=== PATIENT | female | born 1985 | race American Indian/Alaskan Native ===

== ENCOUNTER 2016-04-08 15:09 | Emergency (ER) | payer SELFPAY ==
[2016-04-08 16:03] VITALS: BP 110/72
== END 2016-04-08 17:10 | disposition left against medical advice (07) ==
LOC: ED 15:09
DX: R10.10 Upper abdominal pain, unspecified (principal); R11.2 Nausea with vomiting, unspecified; R42 Dizziness and giddiness; Z72.0 Tobacco use; Z53.21 Procedure and treatment not carried out due to patient leaving prior to being seen by health care provider

== ENCOUNTER 2016-11-18 13:06 | Emergency (ER) | payer MEDICAID ==
[2016-11-18 14:16] LABS: Basophils % (Auto) 0.5 % (0.0-1.8); Hematocrit 38.5 % (30.3-42.9); Hemoglobin 13.1 gm/dl (10.1-14.3); Mean Corpuscular HGB Conc 34 % (30-34); Mean Corpuscular Hemoglobin 32 pg (28-32); Mean Corpuscular Volume 94 fl (79-97); Platelet Count 257 K/mm3 (140-440); Red Blood Count 4.08 M/mm3 (3.65-5.03); Red Cell Distribution Width 13.7 % (13.2-15.2); White Blood Count 10.3 K/mm3 (4.5-11.0)
[2016-11-18 14:51] LABS: Bilirubin,Urine NEG (Negative); Blood,Urine MOD (Negative); Ketones,Urine 80 mg/dL (Negative); Leukocyte Esterase,Urine TR (Negative); Mucus,Urine 1+ /HPF; Nitrite,Urine NEG (Negative)
[2016-11-18 14:53] LABS: RBC,Urine < 182.0 /HPF (0.0-6.0)
[2016-11-18 14:56] LABS: Alanine Aminotransferase 32 units/L (7-56); Albumin 4.7 g/dL (3.9-5); Albumin/Globulin Ratio 1.5 %; Alkaline Phosphatase 51 units/L (35-129); Anion Gap 21 mmol/L; BUN/Creatinine Ratio 15; Blood Urea Nitrogen 12 mg/dL (7-17); Calcium 9.3 mg/dL (8.4-10.2); Carbon Dioxide 22 mmol/L (22-30); Chloride 97.8 mmol/L (98-107); Glucose 98 mg/dL (65-100); Lipase 23 units/L (13-60); Sodium 138 mmol/L (137-145); Total Protein 7.8 g/dL (6.3-8.2)
[2016-11-18 15:00] LABS: Potassium 2.9 mmol/L (3.6-5.0)
[2016-11-18] MEDS ORDERED: ZOFRAN IV ONE (20:42)
[2016-11-18] MEDS ORDERED: MORPHINE IV ONE (20:42)
[2016-11-18] MEDS ORDERED: MAGNESIUM SULFATE 2GM/50ML 2 GM/50 ML BAG IV ONE (20:48)
[2016-11-18] MEDS ORDERED: KCL 10MEQ/100ML 10 MEQ/100 ML BAG IV ONE (20:48)
--- NOTE | 2016-11-18 20:53 | Emergency Department Report ---
ED General Adult HPI - General Chief complaint: Abdominal Pain Stated complaint: ABDOMINAL PAIN/VOMITING Time Seen by Provider: 11/18/16 20:00 Source: patient Mode of arrival: Ambulatory Limitations: No Limitations - History of Present Illness Initial comments: Patient is a 31-year-old femalein past medical history who presents with abdominal pain has been going on for the last 4 days. Patient states that all pain is generalized she states that the pain is in a 10 it's an 80-type pain that doesn't radiate. She is not complaining of any dysuria but she was seen at [facility] for kidney stone. She states that she came in here today because of her nausea. She is vomited 3 times today and was given promethazine as an outpatient. She states that she Tolerated Due To the Vomiting. Vomiting Is Nonbloody Nonbilious. Patient Denies Any Vaginal Discharge or Vaginal Bleeding. Severity scale (0 -10): 5 - Related Data Previous Rx's Medication Instructions Recorded Last Taken Type Ciprofloxacin HCl [Cipro] 500 mg PO Q12H #10 tab 07/01/14 Unknown Rx Ondansetron [Zofran] 8 mg PO Q8HR PRN #12 tablet 07/01/14 Unknown Rx Ciprofloxacin HCl [Cipro] 500 mg PO BID #14 tablet 07/24/14 Unknown Rx Phenazopyridine [Pyridium] 100 mg PO PC #6 tablet 07/24/14 Unknown Rx Promethazine [Phenergan] 25 mg PO Q6H PRN #10 tablet 07/24/14 Unknown Rx Magnesium Chloride [Slow-Mag] 64 mg PO DAILY #20 tablet.er 11/18/16 Unknown Rx Ondansetron [Zofran TAB] 4 mg PO Q8HR PRN #15 tablet 11/18/16 Unknown Rx Potassium Chloride [Klor-Con 10] 10 meq PO DAILY #20 tablet.er 11/18/16 Unknown Rx Allergies Allergy/AdvReac Type Severity Reaction Status Date / Time No Known Allergies Allergy Verified 11/18/16 13:34 ED Review of Systems ROS: Stated complaint: ABDOMINAL PAIN/VOMITING Other details as noted in HPI Constitutional: denies: chills, fever Eyes: denies: eye pain, eye discharge, vision change ENT: denies: ear pain, throat pain Respiratory: denies: cough, shortness of breath, wheezing Cardiovascular: denies: chest pain, palpitations Endocrine: no symptoms reported Gastrointestinal: abdominal pain, nausea, vomiting. denies: diarrhea Genitourinary: denies: urgency, dysuria, discharge Musculoskeletal: denies: back pain, joint swelling, arthralgia Skin: denies: rash, lesions Neurological: denies: headache, weakness, paresthesias Psychiatric: denies: anxiety, depression Hematological/Lymphatic: denies: easy bleeding, easy bruising ED Past Medical Hx - Past Medical History Previous Medical History?: Yes Hx Kidney Stones: Yes Additional medical history: Renal Cyst - Surgical History Past Surgical History?: No - Social History Smoking Status: Current Some Day Smoker Substance Use Type: None - Medications Home Medications: Home Medications Medication Instructions Recorded Confirmed Last Taken Type Ciprofloxacin HCl [Cipro] 500 mg PO Q12H #10 tab 07/01/14 Unknown Rx Ondansetron [Zofran] 8 mg PO Q8HR PRN #12 tablet 07/01/14 Unknown Rx Ciprofloxacin HCl [Cipro] 500 mg PO BID #14 tablet 07/24/14 Unknown Rx Phenazopyridine [Pyridium] 100 mg PO PC #6 tablet 07/24/14 Unknown Rx Promethazine [Phenergan] 25 mg PO Q6H PRN #10 tablet 07/24/14 Unknown Rx Magnesium Chloride [Slow-Mag] 64 mg PO DAILY #20 tablet.er 11/18/16 Unknown Rx Ondansetron [Zofran TAB] 4 mg PO Q8HR PRN #15 tablet 11/18/16 Unknown Rx Potassium Chloride [Klor-Con 10] 10 meq PO DAILY #20 tablet.er 11/18/16 Unknown Rx ED Physical Exam - General Limitations: No Limitations General appearance: alert, in no apparent distress - Head Head exam: Present: atraumatic, normocephalic - Eye Eye exam: Present: normal appearance - ENT ENT exam: Present: mucous membranes moist - Neck Neck exam: Present: normal inspection - Respiratory Respiratory exam: Present: normal lung sounds bilaterally. Absent: respiratory distress - Cardiovascular Cardiovascular Exam: Present: regular rate, normal rhythm. Absent: systolic murmur, diastolic murmur, rubs, gallop - GI/Abdominal GI/Abdominal exam: Present: soft, normal bowel sounds - Extremities Exam Extremities exam: Present: normal inspection - Back Exam Back exam: Present: normal inspection - Neurological Exam Neurological exam: Present: alert, oriented X3 - Psychiatric Psychiatric exam: Present: normal affect, normal mood - Skin Skin exam: Present: warm, dry, intact, normal color. Absent: rash ED Course Vital Signs 11/18/16 11/18/16 11/18/16 13:34 19:30 23:25 Temperature 98.5 F 98.3 F Pulse Rate 54 L 59 L 60 Respiratory 14 17 17 Rate Blood Pressure 132/79 Blood Pressure 120/74 119/66 [Left] O2 Sat by Pulse 100 98 99 Oximetry - Reevaluation(s) Reevaluation #1: 11/18/16 23:32 Patient is feeling better after IV fluids and IV Zofran I will send patient home she has tolerated by mouth trial. ED Medical Decision Making - Lab Data Result diagrams: 11/18/16 13:51 11/18/16 13:51 Lab Results 11/18/16 11/18/16 11/18/16 Range/Units 13:51 13:51 13:51 WBC 10.3 (4.5-11.0) K/mm3 RBC 4.08 (3.65-5.03) M/mm3 Hgb 13.1 (10.1-14.3) gm/dl Hct 38.5 (30.3-42.9) % MCV 94 (79-97) fl MCH 32 (28-32) pg MCHC 34 (30-34) % RDW 13.7 (13.2-15.2) % Plt Count 257 (140-440) K/mm3 Lymph % (Auto) 20.0 (13.4-35.0) % Daniels % (Auto) 9.8 H (0.0-7.3) % Eos % (Auto) 0.0 (0.0-4.3) % Baso % (Auto) 0.5 (0.0-1.8) % Lymph # 2.1 (1.2-5.4) K/mm3 Daniels # 1.0 H (0.0-0.8) K/mm3 Eos # 0.0 (0.0-0.4) K/mm3 Baso # 0.0 (0.0-0.1) K/mm3 Seg Neutrophils % 69.7 (40.0-70.0) % Seg Neutrophils # 7.2 (1.8-7.7) K/mm3 Sodium 138 (137-145) mmol/L Potassium 2.9 L* (3.6-5.0) mmol/L Chloride 97.8 L (98-107) mmol/L Carbon Dioxide 22 (22-30) mmol/L Anion Gap 21 mmol/L BUN 12 (7-17) mg/dL Creatinine 0.8 (0.7-1.2) mg/dL Estimated GFR > 60 ml/min BUN/Creatinine Ratio 15 % Glucose 98 (65-100) mg/dL Calcium 9.3 (8.4-10.2) mg/dL Total Bilirubin 0.40 (0.1-1.2) mg/dL AST 23 (5-40) units/L ALT 32 (7-56) units/L Alkaline Phosphatase 51 (35-129) units/L Total Protein 7.8 (6.3-8.2) g/dL Albumin 4.7 (3.9-5) g/dL Albumin/Globulin Ratio 1.5 % Lipase 23 (13-60) units/L HCG, Qual Negative (Negative) Urine Color (Yellow) Urine Turbidity (Clear) Urine pH (5.0-7.0) Ur Specific [place] (1.003-1.030) Urine Protein (Negative) mg/dL Urine Glucose (UA) (Negative) mg/dL Urine Ketones (Negative) mg/dL Urine Blood (Negative) Urine Nitrite (Negative) Urine Bilirubin (Negative) Urine Urobilinogen (<2.0) mg/dL Ur Leukocyte Esterase (Negative) Urine WBC (Auto) (0.0-6.0) /HPF Urine RBC (Auto) (0.0-6.0) /HPF U Epithel Cells (Auto) (0-13.0) /HPF Urine Mucus /HPF 11/18/16 Range/Units 14:06 WBC (4.5-11.0) K/mm3 RBC (3.65-5.03) M/mm3 Hgb (10.1-14.3) gm/dl Hct (30.3-42.9) % MCV (79-97) fl MCH (28-32) pg MCHC (30-34) % RDW (13.2-15.2) % Plt Count (140-440) K/mm3 Lymph % (Auto) (13.4-35.0) % Daniels % (Auto) (0.0-7.3) % Eos % (Auto) (0.0-4.3) % Baso % (Auto) (0.0-1.8) % Lymph # (1.2-5.4) K/mm3 Daniels # (0.0-0.8) K/mm3 Eos # (0.0-0.4) K/mm3 Baso # (0.0-0.1) K/mm3 Seg Neutrophils % (40.0-70.0) % Seg Neutrophils # (1.8-7.7) K/mm3 Sodium (137-145) mmol/L Potassium (3.6-5.0) mmol/L Chloride (98-107) mmol/L Carbon Dioxide (22-30) mmol/L Anion Gap mmol/L BUN (7-17) mg/dL Creatinine (0.7-1.2) mg/dL Estimated GFR ml/min BUN/Creatinine Ratio % Glucose (65-100) mg/dL Calcium (8.4-10.2) mg/dL Total Bilirubin (0.1-1.2) mg/dL AST (5-40) units/L ALT (7-56) units/L Alkaline Phosphatase (35-129) units/L Total Protein (6.3-8.2) g/dL Albumin (3.9-5) g/dL Albumin/Globulin Ratio % Lipase (13-60) units/L HCG, Qual (Negative) Urine Color Yellow (Yellow) Urine Turbidity Clear (Clear) Urine pH 9.0 H (5.0-7.0) Ur Specific [place] 1.025 (1.003-1.030) Urine Protein 100 mg/dl (Negative) mg/dL Urine Glucose (UA) Neg (Negative) mg/dL Urine Ketones 80 (Negative) mg/dL Urine Blood Mod (Negative) Urine Nitrite Neg (Negative) Urine Bilirubin Neg (Negative) Urine Urobilinogen 2.0 (<2.0) mg/dL Ur Leukocyte Esterase Tr (Negative) Urine WBC (Auto) 9.0 H (0.0-6.0) /HPF Urine RBC (Auto) < 182.0 (0.0-6.0) /HPF U Epithel Cells (Auto) 2.0 (0-13.0) /HPF Urine Mucus 1+ /HPF - EKG Data -: EKG Interpreted by Me - EKG Data 11/18/16 21:04 EKG shows normal sinus rhythm normal axis and no ST segment elevation or T-wave inversion. - Medical Decision Making Chief medical diagnosis: Gastritis Differential medical diagnosis: Hypokalemia, UTI, pancreatitis I will get CBC, CMP, IV pain medication, IV fluids, IV antiemetics and oral challenge Patient is feeling better and received replacement potassium IV. I will send patient home with Zofran, magnesium, potassium oral pill. Discussed discharge plan with patient and she agrees the plan. Additional verbal discharge instructions were given. Critical care attestation.: If time is entered above; I have spent that time in minutes in the direct care of this critically ill patient, excluding procedure time. ED Disposition Clinical Impression: Hypokalemia Nausea and vomiting Qualifiers: Vomiting type: unspecified Vomiting Intractability: non-intractable Qualified Code(s): R11.2 - Nausea with vomiting, unspecified Abdominal pain Qualifiers: Abdominal location: generalized Qualified Code(s): R10.84 - Generalized abdominal pain Disposition: DC- TO HOME OR SELFCARE Is pt being admited?: No Does the pt Need Aspirin: No Condition: Stable Instructions: Abdominal Pain (ED), Acute Nausea and Vomiting (ED), Hypokalemia (ED) Prescriptions: Magnesium Chloride [Slow-Mag] 64 mg PO DAILY #20 tablet.er Ondansetron [Zofran TAB] 4 mg PO Q8HR PRN #15 tablet PRN Reason: Nausea Potassium Chloride [Klor-Con 10] 10 meq PO DAILY #20 tablet.er Referrals: PRIMARY CARE, [Primary Care Provider] - 3-5 Days
[2016-11-18] MEDS ORDERED: NACL 0.9% 1000 ML 1,000 ML IV ONE (20:54)
[2016-11-18] MEDS ORDERED: PHENERGAN PO ONE (22:13)
[2016-11-18 23:26] VITALS: BP 119/66
== END 2016-11-19 00:16 | disposition home or self-care (01) ==
LOC: ED 13:06
DX: E87.6 Hypokalemia (principal); R11.2 Nausea with vomiting, unspecified; R10.84 Generalized abdominal pain; F17.200 Nicotine dependence, unspecified, uncomplicated
CPT/HCPCS: 36415; 80053; 81001; 83690; 84703; 85025; 93005; 93010; 96361; 96374; 96375; 99283; J2405; J3475; J3480; J7030; Q0169

== ENCOUNTER 2018-07-12 09:05 | Emergency (ER) | payer MEDICAID ==
[2018-07-12 09:16] VITALS: BP 100/62
[2018-07-12] MEDS ORDERED: ZOFRAN ODT PO ONE (09:38)
[2018-07-12] MEDS ORDERED: PERCOCET 5/325 PO ONE (09:38)
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
--- NOTE | 2018-07-12 11:09 | Cat Scan Report ---
CT HEAD WITHOUT CONTRAST: HISTORY: Headache. TECHNIQUE: Sequential 2.5mm CT images. COMPARISON: none. FINDINGS: Cerebral Parenchyma: Within normal limits. Cerebellum: Within normal limits. Brainstem: Within normal limits. Ventricles: Normal. Sella: Normal. Extra-axial spaces: Normal. Basal Cisterns: Normal. Intracranial Hemorrhage: None. Midline Shift: None. Calvarium: Normal. Sinuses: Normal. Mastoid Air Cells: Normal. Visualized Orbits: Normal. IMPRESSION: Cranial CT scan within normal limits.
--- NOTE | 2018-07-12 11:10 | Cat Scan Report ---
CT SCAN OF THE CERVICAL SPINE: HISTORY: Neck pain. TECHNIQUE: Contiguous 1.25 mm axial images of the cervical spine were obtained. Sagittal and coronal reformatted images. FINDINGS: There is normal alignment of the cervical spine. The body, pedicles and posterior ligaments appear normal. No evidence of fracture or subluxation is seen. The spinal canal appears normal. The prevertebral soft tissues appear normal. IMPRESSION: Unremarkable CT of the cervical spine. No acute process is noted.
== END 2018-07-12 11:38 | disposition home or self-care (01) ==
LOC: ED 09:05
DX: R51 Headache (principal); M54.2 Cervicalgia; F17.200 Nicotine dependence, unspecified, uncomplicated; Z87.442 Personal history of urinary calculi
CPT/HCPCS: 70450; 72125; 99283; Q0162